=== PATIENT | female | born 1995 | race Caucasian/White ===

== ENCOUNTER 2016-09-03 08:42 | Inpatient (IN) | payer OTHER ==
[2016-09-03] MEDS ORDERED: LACTATED RINGERS SOLUTION 500 ML IV SCH ×2 (09:20→10:19)
[2016-09-03] MEDS ORDERED: BETAMET ACET/BETAMET NA PH 30 MG/5 ML VIAL IM ONE (09:20)
[2016-09-03] MEDS ORDERED: LACTATED RINGERS SOLUTION 1,000 ML IV SCH (12:20)
[2016-09-03 13:08] VITALS: BMI 31.7
[2016-09-03 13:16] LABS: BASOPHIL 0.6 % (0-2.0); EOSINOPHIL 0.4 % (0-4.5); MCH 24.9 pg (25.7-33.7); MCHC 32.3 g/dl (32.0-36.0); MEAN CELL VOLUME 77.1 fl (80-96); MEAN PLT VOLUME 8.2 fl (7.5-11.1); NEUTROPHILS 82.3 % (42.8-82.8); PLATELET COUNT 248 K/MM3 (134-434); RDW 15.6 % (11.6-15.6); WHITE BLOOD COUNT 7.6 K/mm3 (4.0-10.0)
--- NOTE | 2016-09-03 13:38 | HP ---
Past Medical History - Primary Care Physician PCP:: [facility] - Admission Chief Complaint: 21 with vaginal bleeding History of Present Illness: 21 @ 33 weeks presented with vaginal bleeding, on underwear, 1 pad, with small clots. No previous vaginal bleeding. Denies trauma. Denies contractions, LOF, +FM. c/b cholestasis, given rx for Ursodiol 300mg TID, has not started taking. PNC at [facility]. Blood type O positive. Was told previously she had a low lying placenta. 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: Alzheimer's, CVA, Dementia, Migraine, Multiple Sclerosis, Peripheral Neuropathy, Parkinson's, Seizure, Syncope, TIA, Vertigo, Other Cardiovascular: No: AFIB, Aneurysm, Aortic Insufficiency, Aortic Stenosis, CAD, CHF, Deep Vein Thrombosis, HTN, Hyperlipdemia, CO, Mitral Insufficiency, Mitral Stenosis, Murmur, Pulmonary Hypertension, Other Pulmonary: No: Asthma, Bronchitis, Cancer, COPD, O2 Dependent, Pneumonia, Previously Intubated, Pulmonary Embolus, Pulmonary Fibrosis, Sleep Apnea, Other Gastrointestinal: No: Ascites, Cancer, Constipation, Crohn's Disease, Diverticulitis, Diverticulosis, Esophageal Varices, Gastritis, GERD, GI Bleed, Hemorrhoids, Hiatal Hernia, Inflamatory Bowel Disease, Irritable Bowel Disease, Pancreatitis, Peptic Ulcer Disease, Ulcerative Colitis, Other Hepatobiliary: No: Cirrhosis, Cholelithiasis, Cholecystitis, Choledocholithiasis , Hepatitis A, Hepatitis B, Hepatitis C, Other Renal/: No: Renal Failure, Renal Inusuff, BPH, Cancer, Hematuria, Hemodialysis , Neurogenic Bladder, Renal Calculi, UTI, Other Reproductive: No: Ectopic , Endometriosis, Fibroids, PID, Polycystic Ovary Syndrome, Postmenopausal, Other ...: 3 ...Para: 2 ...Term: 1 ...: 1 ...Spon : 0 ...Induced : 0 ...Multiple Gestation: 0 ...LMP: 01/10/16 ... Weeks Gestation by Dates: 33.6 ...EDC by Dates: 10/16/16 ...EDC by Sono: 10/22/16 - Past Surgical History Past Surgical History: Yes: None Hx Myomectomy: No Hx Transabdominal Cerclage: No - Smoking History Smoking history: Never smoked Have you smoked in the past 12 months: No - Alcohol/Substance Use Hx Alcohol Use: No Home Medications - Allergies Allergies/Adverse Reactions: Allergies Allergy/AdvReac Type Severity Reaction Status Date / Time No Known Allergies Allergy Verified 09/03/16 09:34 - Home Medications Home Medications: Ambulatory Orders RX: Vit #108/Iron/FA [ One Tablet] 1 each PO DAILY 08/15/15 Family Disease History - Family Disease History Family History: Unremarkable Review of Systems - Review of Systems Constitutional: reports: No Symptoms Eyes: reports: No Symptoms HENT: reports: No Symptoms Neck: reports: No Symptoms Cardiovascular: reports: No Symptoms Respiratory: reports: No Symptoms Gastrointestinal: reports: No Symptoms Genitourinary: reports: Vaginal Bleeding Breasts: reports: No Symptoms Reported Musculoskeletal: reports: No Symptoms Integumentary: reports: No Symptoms Neurological: reports: No Symptoms Endocrine: reports: No Symptoms Hematology/Lymphatic: reports: No Symptoms Psychiatric: reports: No Symptoms Physical Exam - Maternity Vital Signs: Vital Signs Temperature 98.1 F 09/03/16 13:00 Pulse Rate 82 09/03/16 13:00 Respiratory Rate 18 09/03/16 13:00 Blood Pressure 99/74 09/03/16 13:00 O2 Sat by Pulse Oximetry (%) Constitutional: Yes: Well Nourished, No Distress Eyes: Yes: WNL HENT: Yes: WNL, Atraumatic, Normocephalic Neck: Yes: WNL Cardiovascular: Yes: WNL Lungs: Clear to auscultation - Abdominal Exam/OB Fundal Height: 32 Number of Fetuses: Single Presentation: Vertex Contractions: No Heart Rate (range): 130 Category: I Accelerations: Uniform Decelerations: None - Vaginal Exam/OB Vaginal Bleediing: Yes, Moderate (No current bleeding) Dilatation (cm): 0 Effacement (%): 0 Amniotic Membrane Status: Intact Presentation: Vertex/Position Station: -4 - Physical Exam Extremities: Yes: WNL Edema: No Deep Tendon Reflex Grade: Normal +2 - Labs Lab Results: CBC, BMP 09/03/16 13:00 Imaging - Results Ultrasound: Report Reviewed, Image Reviewed Assessment/Plan 21 @ 33 weeks with vaginal bleeding, no current evidence of labor or abruption. VSS. AF. status reassuring, cat 1 FHT. VSS.AF. Ultrasound today BPP 8/8, low lying placenta 2 cm from os, no evidence of previa. CL 4cm. No current vaginal bleeding. Given BMZ#1 10:15am. -Plan to observe for 24 hrs -continue to monitor -repeat labs 8 hrs -for 2nd dose steroids 09/04 @ 10:15am -regular diet -ursodiol 300mg TID
[2016-09-03 14:20] LABS: INR 0.96 (0.82-1.09); PROTHROMBIN TIME (PATIENT) 10.5 SEC (9.98-11.88)
[2016-09-03 14:23] LABS: ACTIVATED PTT 25.3 SECONDS (26.9-34.4)
[2016-09-03] MEDS: URSODIOL 300 MG CAPSULE PO SCH (22:05)
[2016-09-03 22:25] LABS: BASOPHIL 0.2 % (0-2.0); MCH 25.2 pg (25.7-33.7); MCHC 32.9 g/dl (32.0-36.0); MEAN CELL VOLUME 76.6 fl (80-96); MEAN PLT VOLUME 8.6 fl (7.5-11.1); NEUTROPHILS 83.7 % (42.8-82.8); PLATELET COUNT 274 K/MM3 (134-434); WHITE BLOOD COUNT 6.8 K/mm3 (4.0-10.0)
[2016-09-03 22:49] LABS: INR 0.98 (0.82-1.09); PROTHROMBIN TIME (PATIENT) 10.8 SEC (9.98-11.88)
[2016-09-04 08:13] VITALS: BP 134/64; PULSE 102; TEMP 97.8
[2016-09-04] MEDS: URSODIOL 300 MG CAPSULE PO SCH (09:49)
[2016-09-04] MEDS ORDERED: BETAMET ACET/BETAMET NA PH 30 MG/5 ML VIAL IM SCH (10:00)
--- NOTE | 2016-09-04 10:03 | PN ---
Progress Note (short form) - Note Progress Note: Doing well, no bleeding or contractions since admission. Denies LOF, +FM. No complaints. Given Ursodiol and BMZ x2. CBC WBC 6.8 K/mm3 (4.0-10.0) 09/03/16 22:00 RBC 3.70 M/mm3 (3.60-5.2) 09/03/16 22:00 Hgb 9.3 GM/dL (10.7-15.3) L 09/03/16 22:00 Hct 28.4 % (32.4-45.2) L 09/03/16 22:00 MCV 76.6 fl (80-96) L 09/03/16 22:00 MCHC 32.9 g/dl (32.0-36.0) 09/03/16 22:00 RDW 16.0 % (11.6-15.6) H 09/03/16 22:00 Plt Count 274 K/MM3 (134-434) 09/03/16 22:00 MPV 8.6 fl (7.5-11.1) 09/03/16 22:00 Neutrophils % 83.7 % (42.8-82.8) H 09/03/16 22:00 Lymphocytes % 11.6 % (8-40) 09/03/16 22:00 Monocytes % 4.5 % (3.8-10.2) 09/03/16 22:00 Eosinophils % 0.0 % (0-4.5) D 09/03/16 22:00 Basophils % 0.2 % (0-2.0) 09/03/16 22:00 INR, PTT INR 0.98 (0.82-1.09) 09/03/16 22:00 Fibrinogen 423.0 mg/dL (238-498) 09/03/16 22:00 Vital Signs Period Temp Pulse Resp BP Sys/Angel Pulse Ox Last 24 Hr 97.5 F-98.7 F 82-102 16-20 99-134/50-74 A/P 21 @ 33wk1d presented with first episode of vaginal bleeding. Monitored for 24 hrs with no additional bleeding, VSS. AF. Blood work stable, no evidence of abruption or PTL. status reassuring, cat 1 FHT, no contractions. s/p BMZ x2. Ultrasound 09/03 BPP 02/17, low lying placenta, ~2cm from os. Plan to d/c home with strict bleeding precautions. f/u at [facility] on Thursday. Instructed to start Ursodiol 300mg TID.
--- NOTE | 2016-09-04 10:06 | DS ---
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: Vital Signs Temperature 97.8 F 09/04/16 08:00 Pulse Rate 102 H 09/04/16 08:00 Respiratory Rate 20 09/04/16 08:00 Blood Pressure 134/64 09/04/16 08:00 O2 Sat by Pulse Oximetry (%) Constitutional: Yes: Well Nourished, No Distress Eyes: Yes: WNL HENT: Yes: WNL, Atraumatic, Normocephalic Neck: Yes: WNL Cardiovascular: Yes: WNL, Regular Rate and Rhythm Respiratory: Yes: WNL, Regular, CTA Bilaterally Gastrointestinal: Yes: WNL ...Rectal Exam: Yes: WNL Renal/: Yes: WNL, Other (no vaginal bleeding) External Genitalia: Yes: Normal Vaginal Exam: Yes: Normal Cervix: Yes: Normal Uterus: Yes: Other (Gravid) Extremities: Yes: WNL Edema: No Labs: CBC, BMP 09/03/16 22:00 Delivery, Single - [place] Feeding Plan Initial Plan: Elected not to breastfeed exclusively throughout hospitalization Remarks - Remarks Remarks: 21 @ 33wk1d presented with first episode of vaginal bleeding. Monitored for 24 hrs with no additional bleeding, VSS. AF. Blood work stable, no evidence of abruption or PTL. status reassuring, cat 1 FHT, no contractions. s/p BMZ x2. Ultrasound 09/03 BPP 8/8, low lying placenta, ~2cm from os. Plan to d/c home with strict bleeding precautions. f/u at [facility] on Thursday. Instructed to start Ursodiol 300mg TID. Discharge Summary Condition: Stable - Instructions Diet, Activity, Other Instructions: follow up in [facility] at [facility] Thursday09/09/16. return to L&D for any of the following: -regular contractions -decreased movement -vaginal bleeding -your water breaks Call L&D any time with quaestions or concerns [phone] Referrals: Megan Srinivasan MD [Staff Physician] - Disposition: HOME - Home Medications Comprehensive Discharge Medication List: Ambulatory Orders Vit #108/Iron/FA [ One Tablet] 1 each PO DAILY 08/15/15
== END 2016-09-04 10:15 | disposition home or self-care (01) | DRG 566 ==
LOC: JDEL 08:42 → JLDR 12:20
PROVIDERS: ADMIT Obstetrics & Gynecology; ATTEND Obstetrics & Gynecology
DX: O46.8X3 Other antepartum hemorrhage, third trimester (principal); Z3A.33 33 weeks gestation of pregnancy
CPT/HCPCS: 36415; 59025; 85025; 85384; 85610; 85730; 86850; 86900; 86901; 96372

== ENCOUNTER 2016-10-01 19:40 | Inpatient (IN) | payer OTHER ==
[2016-10-01] MEDS ORDERED: DINOPROSTONE 10 MG VAGINAL SUPPOSITORY VG ONE (20:30)
[2016-10-01] MEDS ORDERED: DEXTROSE 5%-LACTATED RINGERS 1,000 ML IV SCH (20:30)
[2016-10-01 20:57] VITALS: BMI 32.2
[2016-10-01 21:06] LABS: BASOPHIL 0.4 % (0-2.0); EOSINOPHIL 1.3 % (0-4.5); MCH 24.2 pg (25.7-33.7); MCHC 32.5 g/dl (32.0-36.0); MEAN CELL VOLUME 74.4 fl (80-96); MEAN PLT VOLUME 8.3 fl (7.5-11.1); NEUTROPHILS 63.1 % (42.8-82.8); PLATELET COUNT 309 K/MM3 (134-434); RDW 16.6 % (11.6-15.6); WHITE BLOOD COUNT 6.1 K/mm3 (4.0-10.0)
[2016-10-01 21:23] LABS: INR 0.93 (0.82-1.09); PROTHROMBIN TIME (PATIENT) 10.2 SEC (9.98-11.88)
[2016-10-01 21:26] LABS: ACTIVATED PTT 24.5 SECONDS (26.9-34.4)
[2016-10-01 23:03] LABS: CALCIUM 8.7 mg/dL (8.5-10.1); CREATININE 0.7 mg/dL (0.55-1.02)
[2016-10-02] MEDS: OXYTOCIN 20 UNITS in 0.9% NS 1,000 ML IV SCH ×2 (01:28→05:09)
[2016-10-02 01:52] LABS: VENOUS BLOOD GAS HCO3 17.2 meq/L (19-25); VENOUS PH 6.97 (7.32-7.42)
[2016-10-02] MEDS ORDERED: METHYLERGONOVINE MALEATE 0.2 MG/1 ML AMP IM PRN ×2 (02:06→04:15)
[2016-10-02 02:10] LABS: BASOPHIL 0.5 % (0-2.0); EOSINOPHIL 1.1 % (0-4.5); MCH 24.6 pg (25.7-33.7); MCHC 32.5 g/dl (32.0-36.0); MEAN CELL VOLUME 75.8 fl (80-96); MEAN PLT VOLUME 7.4 fl (7.5-11.1); NEUTROPHILS 61.5 % (42.8-82.8); PLATELET COUNT 262 K/MM3 (134-434); RDW 16.2 % (11.6-15.6); WHITE BLOOD COUNT 10.8 K/mm3 (4.0-10.0)
--- NOTE | 2016-10-02 02:16 | HP ---
Admitting History and Physical - Admission Chief Complaint: cholestasis. 37 weeks History of Present Illness: 21 y/o at 37 weeks for induction secondary to cholestasis. Pt has been followed by [facility] on ursodiol. Gct wnl, hiv neg, gbs pos, rubella immune, cystic fibrosis-neg. Pt to have cervidil induction. 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, CVA, Dementia, Migraine, Multiple Sclerosis, Peripheral Neuropathy, Parkinson's, Seizure, Syncope, TIA, Vertigo, Other Cardiovascular: No: AFIB, Aneurysm, Aortic Insufficiency, Aortic Stenosis, CAD, CHF, Deep Vein Thrombosis, HTN, Hyperlipdemia, [place], Mitral Insufficiency, Mitral Stenosis, Murmur, Pulmonary Hypertension, Other Pulmonary: No: Asthma, Bronchitis, Cancer, COPD, O2 Dependent, Pneumonia, Previously Intubated, Pulmonary Embolus, Pulmonary Fibrosis, Sleep Apnea, Other Gastrointestinal: No: Ascites, Cancer, Constipation, Crohn's Disease, Diverticulitis, Diverticulosis, Esophageal Varices, Gastritis, GERD, GI Bleed, Hemorrhoids, Hiatal Hernia, Inflamatory Bowel Disease, Irritable Bowel Disease, Pancreatitis, Peptic Ulcer Disease, Ulcerative Colitis, Other Hepatobiliary: No: Cirrhosis, Cholelithiasis, Cholecystitis, Choledocholithiasis , Hepatitis A, Hepatitis B, Hepatitis C, Other Renal/: No: Renal Failure, Renal Inusuff, BPH, Cancer, Hematuria, Hemodialysis , Neurogenic Bladder, Renal Calculi, UTI, Other Reproductive: No: Ectopic , Endometriosis, Fibroids, PID, Polycystic Ovary Syndrome, Postmenopausal, Other ...LMP: 03/09/14 ...: 3 ...Para: 2 Heme/Onc: No: Anemia, B12 Deficiency, Bleeding Disorder, Cancer, Current Chemotherapy, Current Radiation Therapy, Hemochromatosis, Hypercoaguable State, Myeloproliferative Synd, Sickle Cell Disease, Sickle Cell Trait, Thrombocytopenia, Other Infectious Disease: No: AIDS, C-Diff, Herpes Zoster, HIV, MRSA, STD's, Tuberculosis, VREF, Other Psych: No: Addictions, Anxiety, Bipolar, Depression, Panic, Psychosis, Schizophrenia, Other Musculoskeletal: No: Bursitis, Chronic low back pain, Hemiparesis, Hemiplegia, Osteoarthritis, Paraplegia, Other Rheumatology: No: Fibromyalgia, Gout, Lupus, Rheumatoid Arthritis, Sarcoidosis, Vasculitis, Other ENT: No: Allergic Rhinitis, Sinusitis, Other Dermatology: No: Basal Cell, Cellulitis, Eczema, Melanoma, Psoriasis, Squamous Cell, Other - Past Surgical History Past Surgical History: Yes: None. No: AAA Repair, AICD, Amputation, Appendectomy, Arthrosocopy, AV Fistula/Graft, Bariatric Surgery, Breast Biopsy, Bypass, CABG, Carotid Endarterectomy, Cataract Removal, Cholecystectomy, Colectomy, Colonoscopy, Colostomy, Craniotomy, , Cystectomy, Hernia Repair, Hysterectomy, Ileal Conduit, Ileosotomy, Joint Replacement, Kidney Transplant, Laminectomy, Liver Transplant, Mastectomy, Nephrectomy, Oopherectomy , Orchiectomy, Permanent Pacemaker, Prostatectomy, Splenectomy, Stent, Thoracotomy, TURP, Tonsillectomy, Tubal Ligation, Upper Endoscopy, Valve Replacement, Vasectomy, Vein Stripping/Ligation - Advance Directives Advance Directives: No: Living Will, Health Care Proxy, DNR, Organ Donor, Tissue Donor, MOLST - Smoking History Smoking history: Never smoked Have you smoked in the past 12 months: No - Alcohol/Substance Use Hx Alcohol Use: No History of Substance Use: denies: None, Cocaine, Heroin, Marijuana, Prescription , Tranquilizers - Social History Usual Living Arrangement: No: Alone, With Spouse, With Parent, With Significant Other, With Child, Assisted Living, Fdc, Other Home Medications - Allergies Allergies/Adverse Reactions: Allergies Allergy/AdvReac Type Severity Reaction Status Date / Time No Known Allergies Allergy Verified 09/03/16 09:34 - Home Medications Home Medications: Ambulatory Orders Vit #108/Iron/FA [ One Tablet] 1 each PO DAILY 08/15/15 Ursodiol [Actigall] 300 mg PO BID 10/02/16 Review of Systems - Review of Systems Constitutional: reports: No Symptoms Eyes: reports: No Symptoms HENT: reports: No Symptoms Neck: reports: No Symptoms Cardiovascular: reports: No Symptoms Respiratory: reports: No Symptoms Gastrointestinal: reports: No Symptoms Breasts: reports: No Symptoms Reported Musculoskeletal: reports: No Symptoms Integumentary: reports: No Symptoms Neurological: reports: No Symptoms Physical Examination Vital Signs: Vital Signs Temperature 97.6 F 10/02/16 00:00 Pulse Rate 85 10/02/16 00:00 Respiratory Rate 20 10/02/16 00:00 Blood Pressure 109/70 10/02/16 00:00 O2 Sat by Pulse Oximetry (%) Constitutional: Yes: Well Nourished Eyes: Yes: WNL HENT: Yes: WNL Cardiovascular: Yes: WNL Respiratory: Yes: WNL Gastrointestinal: Yes: WNL Labs: CBC, BMP 10/02/16 02:00 10/01/16 20:15 Assessment/Plan as above cerv placed by Dr Gerardo Cat one expect
--- NOTE | 2016-10-02 02:18 | PN ---
Progress Note (short form) - Note Progress Note: called that pt was bleeding and Dr. Boyd to eval. Called enroute of probable abruption and will start cs.
[2016-10-02] MEDS ORDERED: HYDROmorphone HCL CARPU-JECT 2 MG/1 ML DISP.SYRIN IVPUSH ONE (02:39)
[2016-10-02] MEDS ORDERED: DEXAMETHASONE SOD PHOSPHATE 4 MG/1 ML VIAL IVPUSH PRN (02:39)
[2016-10-02] MEDS ORDERED: PROMETHAZINE HCL 25 MG/1 ML VIAL IVPB PRN (02:39)
[2016-10-02] MEDS ORDERED: ONDANSETRON 4 MG/2 ML VIAL IVPUSH PRN (02:39)
[2016-10-02] MEDS ORDERED: HYDROmorphone *PCA* 10MG/50ML DISP.SYRIN PCA SCH (02:45)
--- NOTE | 2016-10-02 02:51 | PN ---
Progress Note (short form) - Note Progress Note: pt awake, explained findings, baby in well baby..continue post op care
[2016-10-02] MEDS: METHYLERGONOVINE MALEATE 0.2 MG/1 ML AMP IM PRN ×2 (03:45→05:40)
--- NOTE | 2016-10-02 03:48 | PN ---
Progress Note (short form) - Note Progress Note: called for pt with vaginal bleeding. Examined--fundus firm, dark blood. Pt has pitocin and will give methergine IM series.
[2016-10-02] MEDS: IBUPROFEN 800 MG/8 ML IJ IVPB PRN ×2 (04:00→19:17)
[2016-10-02] MEDS ORDERED: IBUPROFEN 600 MG TABLET (FP) PO PRN (04:15)
[2016-10-02] MEDS ORDERED: SIMETHICONE 80 MG TAB.CHEW (FP) PO PRN (04:15)
[2016-10-02] MEDS ORDERED: CITRIC ACID/SODIUM CITRATE 30 ML UNIT-DOSE CUP PO ONE (04:45)
[2016-10-02] MEDS ORDERED: CARBOPROST TROMETHAMINE 250 MCG/ML AMPUL IM PRN (05:43)
[2016-10-02 08:30] LABS: BASOPHIL 0.4 % (0-2.0); EOSINOPHIL 0.1 % (0-4.5); MCH 24.9 pg (25.7-33.7); MCHC 33.3 g/dl (32.0-36.0); MEAN PLT VOLUME 8.1 fl (7.5-11.1); NEUTROPHILS 73.7 % (42.8-82.8); PLATELET COUNT 193 K/MM3 (134-434); RDW 15.6 % (11.6-15.6)
--- NOTE | 2016-10-02 09:47 | PN ---
Progress Note (short form) - Note Progress Note: Anesthesia postop note 21 y/o F s/p GA for stat c/s for abruptio placentae, dilaudid story reader for post op pain management. Seen this morning at 8am, few hours postop. Sleeping comfortable, easily arousable, vss, aaox3, pain well controlled with story reader. Will d/c story reader when tolerating po. No anesthesia complications.
[2016-10-02] MEDS ORDERED: PCA PUMP KEY 1 EACH EACH ONE ×2 (17:28→17:56)
[2016-10-02] MEDS ORDERED: oxyCODONE HCL 5 MG TABLET PO PRN ×3 (18:40→18:42)
--- NOTE | 2016-10-02 18:46 | PN ---
Progress Note (short form) - Note Progress Note: [address] Wells for induction of Labor. Cervidil placed at 9:10pm as per Dr. Wells request. Problem List - Problems (1) Placental abruption affecting delivery Code(s): O45.90 - PREMATURE SEPARATION OF PLACENTA, UNSP, UNSP TRIMESTER
--- NOTE | 2016-10-02 19:09 | PN ---
Progress Note (short form) - Note Progress Note: Called by Nurse around 12:30 am to evaluate patient due to profuse bleeding. Came to see patient; there was significant amount of bleeding. A speculum was placed in the vagina and more bleeding visualized; cervidil expelled. Digital examination showed evidence of a 4cm-cervical dilation. Patient's Dr. was inform by the nurse. After observation of decrease heart rate, decision was made to take patient to OR due to suspicion of Placental abruption. Anesthesiologist and Solar Power Installer were called. In the OR general anesthesia was administered. Since there was no neurosurgical nurse practitioner available, the nurse was asked to call the Nursing supervisor special education to provide a resident for assistance.
--- NOTE | 2016-10-02 19:16 | OP ---
Operative Note - Note: Operative Date: 10/02/16 Pre-Operative Diagnosis: Placental Abruption Operation: Primary Findings: Baby girl in cephalic position ( LOT ) Lack of tone Post-Operative Diagnosis: Same as Pre-op Surgeon: Leann Noel Anesthesia: General Specimens Removed: Placenta Estimated Blood Loss (mls): 700
[2016-10-02] MEDS: SIMETHICONE 80 MG TAB.CHEW (FP) PO PRN (19:23)
[2016-10-03] MEDS ORDERED: BISACODYL 10 MG SUPP.RECT RC PRN ×2 (02:09→04:15)
[2016-10-03] MEDS: SIMETHICONE 80 MG TAB.CHEW (FP) PO PRN ×2 (03:51→21:09)
[2016-10-03] MEDS: oxyCODONE HCL 5 MG TABLET PO PRN ×2 (03:52→21:09)
[2016-10-03] MEDS: IBUPROFEN 600 MG TABLET (FP) PO PRN ×2 (03:55→21:09)
[2016-10-03] MEDS: OXYTOCIN 20 UNITS in 0.9% NS 1,000 ML IV SCH (06:06)
[2016-10-03 07:39] LABS: BASOPHIL 0.5 % (0-2.0); MCH 25.1 pg (25.7-33.7); MCHC 33.3 g/dl (32.0-36.0); MEAN CELL VOLUME 75.4 fl (80-96); NEUTROPHILS 69.5 % (42.8-82.8); PLATELET COUNT 209 K/MM3 (134-434); RDW 16.4 % (11.6-15.6); WHITE BLOOD COUNT 9.2 K/mm3 (4.0-10.0)
--- NOTE | 2016-10-03 08:36 | PN ---
Progress Note (short form) - Note Progress Note: Anesthesia postop note POD#2 s/p GA for emergency section for placental abruption, on landscape specialist for post op pain management. 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
[2016-10-03] MEDS ORDERED: DIPHTH,PERTUSS(ACELL),TET 0.5 ML DISP.SYRIN IM ONE (10:00)
[2016-10-03 10:13] LABS: RUBELLA ANTIBODY,IGM <20.0 AU/mL (0.0-19.9)
--- NOTE | 2016-10-03 10:13 | OP ---
DATE OF OPERATION: 10/02/2016 PREOPERATIVE DIAGNOSIS: Placental abruption, abnormal vaginal bleeding. POSTOPERATIVE DIAGNOSIS: Placental abruption, abnormal vaginal bleeding. PROCEDURE: Primary low transverse section. SURGEON: Leann Noel MD ANESTHESIA: General. COMPLICATIONS: Emergency . ESTIMATED BLOOD LOSS: 700 mL. DESCRIPTION OF PROCEDURE: Patient was in labor and delivery for induction of labor, then started bleeding profusely. After observation of decreased heart rate, decision was made to take the patient to the operating room due to suspicion of placental abruption. In the OR, general anesthesia was administered. Patient was intubated. A Pfannenstiel incision was made and carried down to the underlying layer of fascia. The fascia was incised in the midline and extended laterally. The inferior aspect of the fascial incision was then grasped with Rupinder clamps, elevated, and the rectus muscle dissected out bluntly. Attention was then turned to the superior aspect of the fascial incision, which in a similar fashion was then grasped with the Rupinder clamp, elevated, and the rectus muscle dissected out bluntly. The rectus muscle was then in the midline. The peritoneum was identified and entered sharply with the Metzenbaum scissors. The vesicouterine peritoneum was then grasped with a Rupinder clamp, elevated, and entered sharply with the Metzenbaum scissors. This incision was extended laterally, and a bladder flap created digitally. The bladder flap was inserted, and the lower uterine segment was then incised using a 10-blade. This incision was extended laterally, and the head delivered. The baby was noted to be without tone, and nose and mouth were suctioned. Cord clamped and cut. The was handed to the awaiting neonatology. The placenta was then removed manually. The uterus exteriorized and cleared of all clots and debris. The uterine incision was repaired using 0 Biosyn in a running locked fashion. The 2nd layer of the same suture was used as a means to provide excellent hemostasis. Then, the pelvis was then completely irrigated. The uterus was returned to the abdomen. The peritoneum was closed using 2-0 Biosyn, and the fascia was reapproximated using 0 Vicryl. Then, the skin was closed by Dr. Wells. PATHOLOGY: Placenta. Valencia JUÁREZ/[id number]
--- NOTE | 2016-10-03 14:35 | PN ---
Progress Note (short form) - Note Progress Note: s/p c/s for abruptio , had blood transfusion, no active vaginal bleeding no dizziness or headache CBC, BMP 10/03/16 06:35 10/01/16 20:15 Last Vital Signs Temp Pulse Resp BP Pulse Ox 98.1 F 88 20 125/71 98 10/03/16 08:35 10/03/16 08:35 10/03/16 08:35 10/03/16 08:35 10/02/16 22:00 abdomen soft, no distension, no cva incision dry, clean no calf tenderness impression anemia , asymptomatic , advised iron, vit repeat cbc
[2016-10-04] MEDS: SIMETHICONE 80 MG TAB.CHEW (FP) PO PRN ×2 (05:01→16:18)
[2016-10-04] MEDS: oxyCODONE HCL 5 MG TABLET PO PRN ×2 (05:01→16:16)
[2016-10-04] MEDS: IBUPROFEN 600 MG TABLET (FP) PO PRN ×2 (05:04→16:17)
--- NOTE | 2016-10-04 12:39 | PN ---
Post Progress Note - Subjective Subjective: resting in bed, comfortable, no bleeding Post Day: 2 Type of Delivery: Primary C/S Vital Signs: Vital Signs Temperature 98.3 F 10/04/16 07:30 Pulse Rate 78 10/04/16 07:30 Respiratory Rate 20 10/04/16 07:30 Blood Pressure 102/60 10/04/16 07:30 O2 Sat by Pulse Oximetry (%) 98 10/02/16 22:00 Uterus: Yes: Fundus Firm Incision: Yes: Mcdowell intact Abdomen/GI: Yes: Abdomen soft Lochia: Yes: Rubra Lochia, amount: Small Extremities: Yes: Calves non-tender Perineum: Yes: Intact Activity: Ambulating - Labs Labs: CBC WBC 9.2 K/mm3 (4.0-10.0) 10/03/16 06:35 RBC 2.80 M/mm3 (3.60-5.2) L D 10/03/16 06:35 Hgb 7.0 GM/dL (10.7-15.3) L D 10/03/16 06:35 Hct 21.1 % (32.4-45.2) L D 10/03/16 06:35 MCV 75.4 fl (80-96) L 10/03/16 06:35 MCHC 33.3 g/dl (32.0-36.0) 10/03/16 06:35 RDW 16.4 % (11.6-15.6) H 10/03/16 06:35 Plt Count 209 K/MM3 (134-434) 10/03/16 06:35 MPV 8.0 fl (7.5-11.1) 10/03/16 06:35 Neutrophils % 69.5 % (42.8-82.8) 10/03/16 06:35 Lymphocytes % 20.8 % (8-40) D 10/03/16 06:35 Monocytes % 8.2 % (3.8-10.2) 10/03/16 06:35 Eosinophils % 1.0 % (0-4.5) D 10/03/16 06:35 Basophils % 0.5 % (0-2.0) 10/03/16 06:35 Assessment/Plan oob reg diet check cbc in am iron
[2016-10-04] MEDS: FERROUS SO4 325 MG TABLET (FP) PO SCH (13:59)
[2016-10-05] MEDS: oxyCODONE HCL 5 MG TABLET PO PRN (07:21)
[2016-10-05] MEDS: IBUPROFEN 600 MG TABLET (FP) PO PRN (07:22)
[2016-10-05] MEDS: SIMETHICONE 80 MG TAB.CHEW (FP) PO PRN (07:23)
[2016-10-05 07:58] VITALS: BP 118/62; PULSE 71; TEMP 98.7
[2016-10-05 08:06] LABS: MCH 25.2 pg (25.7-33.7); MCHC 33.1 g/dl (32.0-36.0); MEAN CELL VOLUME 76.3 fl (80-96); MEAN PLT VOLUME 7.3 fl (7.5-11.1); PLATELET COUNT 269 K/MM3 (134-434); WHITE BLOOD COUNT 8.3 K/mm3 (4.0-10.0)
[2016-10-05] MEDS: FERROUS SO4 325 MG TABLET (FP) PO SCH (09:44)
[2016-10-05 10:39] LABS: METAMYELOCYTE 1 % (0-2)
--- NOTE | 2016-10-07 14:00 | PATH ---
Surgical Pathology Report Patient Name: CHRIS CRUMP [facility]. Rec. 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 Specimen(s) Received PLACENTA Clinical History Cholestasis Primary , 37 weeks Final Diagnosis PLACENTA, DELIVERY: FOCALLY DISRUPTED THIRD TRIMESTER PLACENTA WITH INTERVILLOUS FIBRIN DEPOSITION, THREE VESSEL UMBILICAL CORD AND UNREMARKABLE PLACENTAL MEMBRANES. Electronically Signed Robert Jean-Baptiste M.D. Gross Description The specimen is received fresh labeled placenta and is a 530 gram, 18.5 x 16.5 x 2.9 cm. placenta with attached membranes and umbilical cord. The attached membranes are mata green, meconium stained, thick, cloudy and insert marginally. The umbilical cord measures 16 cm. in length and averages 1.2 cm. in diameter. The cord inserts eccentrically, 1 cm. to the nearest margin. No true knots or strictures are identified. Cut surface of the umbilical cord reveals 3 vessels. The surface is lopez green, meconium stained with minimal fibrin deposition and appropriate caliber vessels. The maternal surface is red-brown with focal defects. Sectioning reveals red-brown, spongy parenchyma. No lesions are identified. [place] [place] sections are submitted in three cassettes as follows: 1- membrane rolls and umbilical cord; 2-3- full thickness sections of placenta. 10/06/201610/06/2016
== END 2016-10-05 14:35 | disposition home or self-care (01) | DRG 540 ==
LOC: JLDR 19:40 → J3W 10-02 05:28
PROVIDERS: ADMIT Obstetrics & Gynecology; ATTEND Obstetrics & Gynecology
PROC: 10D00Z1 Extraction of Products of Conception, Low, Open Approach (ICD-10-PCS; principal; 2016-10-02)
PROC: 3E0P7GC Introduction of Other Therapeutic Substance into Female Reproductive, Via Natural or Artificial Opening (ICD-10-PCS; 2016-10-02)
PROC: 30233N1 Transfusion of Nonautologous Red Blood Cells into Peripheral Vein, Percutaneous Approach (ICD-10-PCS; 2016-10-02)
DX: O45.8X3 Other premature separation of placenta, third trimester (principal); O99.02 Anemia complicating childbirth; D64.89 Other specified anemias; Z3A.37 37 weeks gestation of pregnancy; Z22.330 Carrier of Group B streptococcus; Z37.0 Single live birth
CPT/HCPCS: 36415; 80048; 82803; 85025; 85610; 85730; 86762; 86850; 86900; 86901; 86922; 87340; 88307-TC; P9038; P9058

== ENCOUNTER 2018-03-10 05:35 | Inpatient (IN) | payer OTHER ==
[2018-03-10] MEDS ORDERED: CITRIC ACID/SODIUM CITRATE 30 ML UNIT-DOSE CUP PO ONE (06:16)
[2018-03-10] MEDS ORDERED: ELECTROLYTE-148 SOLN 500 ML IV ONE (06:16)
[2018-03-10] MEDS ORDERED: SUCCINYLCHOLINE CHLORIDE 200 MG/10 ML VIAL ONE (06:31)
[2018-03-10] MEDS ORDERED: PROPOFOL 20 ML ONE (06:31)
[2018-03-10] MEDS ORDERED: ETOMIDATE 20 MG/10 ML AMPUL IVPUSH ONE (06:32)
--- NOTE | 2018-03-10 06:34 | HP ---
Past Medical History - Primary Care Physician PCP:: Kym Kiran - Admission Chief Complaint: 23 yrs , previous c/s , c/o pain onset & bleeeding since 4.00AM , came by ambulence at 5.30 Am c/o rom & bleeding . c/o severe pain History of Present Illness: pnc at [address] [place] [address] cholestasis of suspected since 02/11/18 rx po urosodiol bid 03/02/18 labs indicate ast 183, alt 403, total bile acds 38.8 --- elevated 12/12/17 quantiferon neg ,,1 hr gtt 88, 12/01/17 hbsag neg, rpr nr, hiv nr, Ops, rubella immune,sickle neg, pap nilm , gc/c/t neg , leas neg, cf screen neg early pregn subchorinic hematoma noted. pt was followed by MFM for growth sono & bpp for cholestasis History Source: Patient, Medical Record Limitations to Obtaining History: No Limitations - Past Medical History CIVIL ATTORNEY: Yes: Syncope. No: Migraine Cardiovascular: No: HTN, Murmur Pulmonary: No: Asthma Gastrointestinal: No: Constipation Hepatobiliary: Yes: Other (cholestasis of , elevated bile acds & liver enzymes) Renal/: No: UTI ...: 4 ...Para: 3 ...LMP: 07/06/17 ... Weeks Gestation by Dates: 35.1 ...EDC by Dates: 04/12/18 Additional OB History: g1 06/01/2012 - 5'10",. g2 08/16/15 6 '4". g3 10/02/16 primary c/s 7'4" Heme/Onc: Yes: Anemia Infectious Disease: No: AIDS, STD's, Tuberculosis Psych: Yes: Other (denies h/o mental illness) - Past Surgical History Past Surgical History: Yes: None, (09/2016) Hx Myomectomy: No Hx Transabdominal Cerclage: No - Smoking History Smoking history: Never smoked Have you smoked in the past 12 months: No - Alcohol/Substance Use Hx Alcohol Use: No History of Substance Use: reports: None Home Medications - Allergies Allergies/Adverse Reactions: Allergies Allergy/AdvReac Type Severity Reaction Status Date / Time No Known Allergies Allergy Verified 03/10/18 06:15 - Home Medications Home Medications: Ambulatory Orders Vit 108/Iron/Folic AC [ One Tablet] 1 each PO DAILY 08/15/15 Ursodiol [Actigall] 300 mg PO BID 10/02/16 Physical Exam - Maternity Vital Signs: Selected Entries 03/10/18 05:35 Temperature 97.5 F L Pulse Rate 82 Blood Pressure 103/60 Weight 186 lb Constitutional: Yes: Other (pt very restless, lying in rt lateral position, feels pain turning the position) Eyes: Yes: WNL HENT: Yes: WNL, Normocephalic Neck: Yes: WNL Cardiovascular: Yes: WNL Lungs: Clear to auscultation Breast(s): Yes: Other (not examined) - Abdominal Exam/OB Fundal Height: 35 (uterus tender to touch ) Number of Fetuses: Single Presentation: Vertex (exam at 5.45 AM) Contractions: Yes Regularity: Regular (1-3 min) Intensity: Mod/Strong Monitor Mode: External Heart Rate (range): 150-160 Heart Rate Location: Midline Category: I Accelerations: Uniform Decelerations: None - Vaginal Exam/OB Vaginal Bleediing: Yes, Fresh Blood Speculum Exam: No Dilatation (cm): 1 Effacement (%): 70 Amniotic Membrane Status: Intact Presentation: Vertex/Position Station: -3 - Physical Exam Musculoskeletal: Yes: WNL Extremities: Yes: WNL. No: Calf Tenderness Edema: Yes Integumentary: Yes: WNL, Incision (old pfannensteil scar, keloid) Deep Tendon Reflex Grade: Normal +2 ...Motor Strength: WNL Psychiatric: Yes: WNL, Alert, Oriented - Labs Lab Results: Laboratory Tests 03/10/18 03/10/18 03/10/18 06:25 06:25 06:25 WBC 10.2 H Hgb 9.8 L Hct 29.2 L D Plt Count 253 Neutrophils % 74.2 D Lymphocytes % 18.0 D Monocytes % 6.7 PT with INR 10.70 INR 0.95 PTT (Actin FS) 23.5 L Sodium Potassium Chloride BUN Random Glucose Calcium AST ALT Albumin Opiates Screen Methadone Screen Barbiturate Screen Phencyclidine Screen Ur Amphetamines Screen MDMA (Ecstasy) Screen Benzodiazepines Screen Cocaine Screen U Marijuana (THC) Screen Blood Type Antibody Screen Pending 03/10/18 03/10/18 03/10/18 06:25 06:25 06:25 WBC Hgb Hct Plt Count Neutrophils % Lymphocytes % Monocytes % PT with INR INR PTT (Actin FS) Sodium 140 Potassium 4.3 Chloride 108 H BUN 14 Random Glucose 120 H Calcium 9.2 AST 134 H ALT 293 H Albumin 2.5 L Opiates Screen Negative Methadone Screen Negative Barbiturate Screen Negative Phencyclidine Screen Negative Ur Amphetamines Screen Negative MDMA (Ecstasy) Screen Negative Benzodiazepines Screen Negative Cocaine Screen Negative U Marijuana (THC) Screen Negative Blood Type O POSITIVE Antibody Screen Hemorrhage Risk Assessment - Risk Factors Medium Risk Factors: Yes: Prior , uterine surgery,or multiple laparotomies High Risk Factors: Yes: Active bleeding on admission (abruptio placenta supected ) Risk Score: 3 Risk Level: High Risk Problem List - Problems (1) with 35 completed weeks gestation Code(s): Z3A.35 - 35 WEEKS GESTATION OF (2) Abruptio placenta Code(s): O45.90 - PREMATURE SEPARATION OF PLACENTA, UNSP, UNSP TRIMESTER Qualifiers: Trimester: third trimester Qualified Code(s): O45.93 - Premature separation of placenta, unspecified, third trimester (3) Previous section Code(s): Z98.891 - HISTORY OF UTERINE SCAR FROM PREVIOUS SURGERY Assessment/Plan 23 yrs , previous c/s, 35.1 weeks gestation presented with bleeding & pain Abruptio placenta diagnosed Plan repeat c/section mayra
[2018-03-10] MEDS: ELECTROLYTE-148 SOLN 1,000 ML IV SCH (06:45)
[2018-03-10 06:51] LABS: BASO % 0.5 % (0-2.0); EOS % 0.6 % (0-4.5); HEMATOCRIT 29.2 % (32.4-45.2); HEMOGLOBIN 9.8 GM/dL (10.7-15.3); MCH 26.7 pg (25.7-33.7); MCHC 33.5 g/dl (32.0-36.0); MEAN CELL VOLUME 79.7 fl (80-96); MEAN PLT VOLUME 8.7 fl (7.5-11.1); MONO % 6.7 % (3.8-10.2); NEUT % 74.2 % (42.8-82.8); PLATELET COUNT 253 K/MM3 (134-434); RBC 3.66 M/mm3 (3.60-5.2); RDW 14.5 % (11.6-15.6); WHITE BLOOD COUNT 10.2 K/mm3 (4.0-10.0)
[2018-03-10] MEDS ORDERED: PHENYLEPHRINE HCL 10 MG/1 ML SINGLE DOSE VIAL ONE (06:57)
[2018-03-10] MEDS ORDERED: OXYTOCIN 10 UNITS/ML VIAL ONE ×2 (06:58→07:01)
[2018-03-10] MEDS ORDERED: OXYTOCIN 20 UNITS in 0.9% NS 20 UNIT/1,000 ML INFUS.BAG IV ONE (07:01)
[2018-03-10] MEDS ORDERED: DEXAMETHASONE SOD PHOSPHATE 4 MG/1 ML VIAL ONE (07:02)
[2018-03-10] MEDS ORDERED: ceFAZolin SODIUM 1 GM VIAL ONE ×3 (07:03→22:42)
[2018-03-10 07:04] VITALS: BMI 31.9
[2018-03-10 07:12] LABS: INR 0.95 (0.83-1.09); PROTHROMBIN TIME (PATIENT) 10.7 SEC (9.7-13.0)
[2018-03-10 07:15] LABS: ACTIVATED PTT 23.5 SECONDS (25.2-36.5); COCAINE, UR NEGATIVE ng/ml (CUTOFF=300); METHADONE, UR NEGATIVE ng/ml (CUTOFF=300); OPIATES, URI NEGATIVE ng/ml (CUTOFF=300); PHENCYCLIDINE,URINE NEGATIVE ng/ml (CUTOFF=25); URINE AMPHETAMINES NEGATIVE ng/ml (CUTOFF=500); URINE BARBITURATES NEGATIVE ng/ml (CUTOFF=200); URINE BENZODIAZEPINES NEGATIVE ng/ml (CUTOFF=200)
[2018-03-10 07:21] LABS: ALBUMIN 2.5 g/dl (3.4-5.0); ANION GAP 13 MMOL/L (8-16); BILIRUBIN,TOTAL 0.4 mg/dL (0.2-1.0); BLOOD UREA NITROGEN 14 mg/dL (7-18); CALCIUM 9.2 mg/dL (8.5-10.1); CHLORIDE 108 mmol/L (98-107); CO2 19 mmol/L (21-32); CREATININE 0.7 mg/dL (0.55-1.02); GLUCOSE,RANDOM 120 mg/dL (74-106); POTASSIUM 4.3 mmol/L (3.5-5.1); SGOT/AST 134 U/L (15-37); SGPT/ALT 293 U/L (12-78); SODIUM 140 mmol/L (136-145)
[2018-03-10 07:22] LABS: ALK PHOS 210 U/L (45-117)
[2018-03-10] MEDS ORDERED: DEXAMETHASONE SOD PHOSPHATE 4 MG/1 ML VIAL IVPUSH PRN (07:22)
[2018-03-10] MEDS ORDERED: PROMETHAZINE HCL 25 MG/1 ML VIAL IVPB PRN (07:22)
[2018-03-10] MEDS ORDERED: ONDANSETRON 4 MG/2 ML VIAL IVPUSH PRN ×2 (07:22)
[2018-03-10 07:33] LABS: ARTERIAL BLD GAS O2 SATURATION 5.9 % (90-98.9); ARTERIAL BLOOD GAS BASE EXCESS -9.8 meq/l (-2-2); ARTERIAL BLOOD GAS PCO2 72.3 mmHg (35-45); ARTERIAL BLOOD GAS PO2 7.3 mmHg (80-100); ARTERIAL BLOOD GAS pH 7.09 (7.35-7.45)
[2018-03-10] MEDS: OXYTOCIN 20 UNITS in 0.9% NS 20 UNIT/1,000 ML INFUS.BAG IV SCH ×2 (07:45→17:57)
[2018-03-10 07:46] LABS: VENOUS PC02 57.8 mmHg (38-52); VENOUS PH 7.19 (7.32-7.42); VENOUS PO2 17.1 mmHg (28-48)
[2018-03-10] MEDS: HYDROmorphone *PCA* 10MG/50ML DISP.SYRIN PCA SCH (08:00)
[2018-03-10] MEDS ORDERED: HYDROmorphone *PCA* 10MG/50ML DISP.SYRIN PCA ONE (08:01)
[2018-03-10] MEDS ORDERED: IBUPROFEN 600 MG TABLET (FP) PO PRN (08:14)
[2018-03-10] MEDS ORDERED: METHYLERGONOVINE MALEATE 0.2 MG/1 ML AMP IM PRN (08:14)
--- NOTE | 2018-03-10 08:29 | PN ---
Delivery - Delivery Section: Repeat, Low Flap Transverse Type of Anesthesia: General EBL (cc): 1,200 (hitchcock output 375ml ) Delivery, Single - Stages of Labor Date 1st Stage Initiatied: 03/10/18 Time 1st Stage Initiated: 04:00 Time of Delivery: 06:56 Date Placenta Delivered: 03/10/18 Time Placenta Delivered: 06:57 Placenta: Yes: Manual Removal, Uterine Exploration (abruptio placenta, 1000 ml blood clots in utero) - Condition of Energy Advisor/Automotive Specialty Technician Present: Yes Name: Rosemarie Venegas Infant Gender: Female Weight: 6 lb 8 oz Position: Right, OT - 1 Minute Total Score: 4 5 Minutes Total Score: 7 - Feeding Plan Initial Plan: Elected not to breastfeed exclusively throughout hospitalization Remarks - Remarks Remarks: 23 yrs , previous c/s 35.1 weeks c/o bleeding & pain , gbs unknown , elevated liver enz & elevated bile acids Indication : 35.1 weeks previous /csetion , Abruptio placenta cholestasis of intrapartum course uneventful
--- NOTE | 2018-03-10 08:35 | OP ---
Operative Note - Note: Operative Date: 03/10/18 Pre-Operative Diagnosis: 35.1 weeks, , abruptio placenta, previous c/section , cholestasis of pregnacy Operation: Repeat LFTC/Section Findings: Baby Girl, 4/7 , wt 6'8" , ht 19" ROT position baby transferred to NICU .6.56 AM abruptio placenta, Afluid blood stained, baby born along with blood clots . approx 1000 ml blood clots in utero both tubes & ovaries normal Dr Venegas Through Freight Engineer present in the room Surgeon: Kym Kiran Roustabout Hand: [place] [place] Anesthesiologist/EYEGLASS FRAME TRUER: fEra Clement Anesthesia: General Specimens Removed: placenta, blood clots. cord blood for gas. cord blood Estimated Blood Loss (mls): 1,200 Drains, Volume Out (mls): 375 (hitchcock output van color ) Fluid Volume Replaced (mls): 3,000 (preop & intraop ) Operative Report Dictated: Yes
[2018-03-10 08:45] LABS: BASO % 0.2 % (0-2.0); EOS % 0.1 % (0-4.5); HEMATOCRIT 27.8 % (32.4-45.2); HEMOGLOBIN 9.2 GM/dL (10.7-15.3); LYMPH % 11.3 % (8-40); MCH 26.7 pg (25.7-33.7); MCHC 33.2 g/dl (32.0-36.0); MEAN CELL VOLUME 80.4 fl (80-96); MEAN PLT VOLUME 8.5 fl (7.5-11.1); MONO % 4.9 % (3.8-10.2); NEUT % 83.5 % (42.8-82.8); PLATELET COUNT 211 K/MM3 (134-434); RBC 3.45 M/mm3 (3.60-5.2); RDW 14.4 % (11.6-15.6); WHITE BLOOD COUNT 8.8 K/mm3 (4.0-10.0)
--- NOTE | 2018-03-10 09:10 | OP ---
DATE OF OPERATION: 03/10/2018 PREOPERATIVE DIAGNOSES: 35.1 weeks, abruption of placenta, previous section and cholestasis . OPERATION: Repeat low flap transverse section. SURGEON: Kym Kiran MD GREEN MARKETING ANALYST SURGEON: SULEIMAN River ANESTHESIOLOGIST: Efra Clement MD ANESTHESIA: General. WASTE DISPOSAL LEAKAGE TESTER: Rosemarie Venegas DO FINDINGS: This is a 23-year-old 4, para 3-0-0-3 with a previous c- section, has onset of pain and bleeding since 4 a.m. Arrived by ambulance. Patient very restless and experiences pain in turning the position and the patient's cervix 1 cm dilated, bleeding from the vagina, membranes intact and jennifer every 1 to 3 minutes. Uterus very tender. heart rate was 150, category I. Abruption of placenta suspected. Abdomen was shaved, prepped. Mccarty catheter was placed. SCD placed She was taken to the operating room table. Abdomen was painted and draped in usual manner. General anesthesia was given. Pfannenstiel incision was made through previous scar. The skin, subcutaneous tissue, anterior rectus sheath were incised transversely. Bleeding points were clamped and cauterized. Rectus muscle was from the rectus sheath. Parietal peritoneum was opened vertically. bladder peritoneum was identified. Bladder was pushed down. Lower uterine segment was incised transversely. Amniotic fluid was blood stained and the baby was delivered from ROT position at 6:56 a.m. and the blood clots also delivered along with the baby. Placenta was abrupted. Placenta was removed completely with the membranes and estimated blood clots were 1000 mL and the uterine cavity was clean. Thus the uterine incision was closed in 2 layers, 1st layer with a continuous locking with a Biosyn 0 suture, 2nd layer was a continuous intermittently locking with a Biosyn 0 suture and vertical mattress sutures were taken for the 2nd layer. Parietal peritoneum was included in the 2nd layer. Both the tubes and ovaries were normal. Sponge, instrument count was correct. Irrigation was done. Then the closure of the abdomen was done. Parietal peritoneum was closed with a Vicryl 0 suture. Muscles were approximated together with Vicryl 0 interrupted sutures and the anterior rectus sheath was closed with a Vicryl 0 suture. Continuous sutures were taken. Hemostasis was checked underneath the anterior rectus sheath flap before closure of the subcutaneous tissue. Hemostasis was verified and the previous keloid scar was excised and subcutaneous tissue hemostasis achieved and subcutaneous tissue was approximated with a Biosyn 0 suture in interrupted sutures. Then skin was approximated with the nathalia. Pressure dressing was given. Blood clots were removed from the vagina,approx 100 mL total. Blood loss was 1200 mL and urine output total preoperative and intraoperative was 375 mL. Total fluid given preoperative and intraoperative was 3000 mL and the baby was a baby girl, was 4, 7, weight was 6 pounds 8 ounces, height is 19 and baby was transferred to the NICU and the baby is on CPAP. Patient received IV Ancef 1 gm prior to the incision and she was transferred to the recovery room in stable condition. Valencia [id number] MTDD
[2018-03-10] MEDS ORDERED: CEFAZOLIN 1 GM in DEXTROSE 5%-WATER - 50 ML IVPB SCH (10:00)
[2018-03-10] MEDS ORDERED: DEXTROSE 5%-WATER - 50 ML IVPB ONE ×2 (14:28→22:42)
[2018-03-10] MEDS: CEFAZOLIN 1 GM in DEXTROSE 5%-WATER - 50 ML IVPB SCH ×2 (14:42→22:50)
[2018-03-10] MEDS ORDERED: oxyCODONE HCL 5 MG TABLET PO PRN (22:00)
[2018-03-11] MEDS ORDERED: PCA PUMP KEY 1 EACH EACH ONE ×3 (01:07→09:39)
[2018-03-11] MEDS: HYDROmorphone *PCA* 10MG/50ML DISP.SYRIN PCA SCH (03:20)
[2018-03-11] MEDS ORDERED: ceFAZolin SODIUM 1 GM VIAL ONE (06:20)
[2018-03-11] MEDS ORDERED: DEXTROSE 5%-WATER - 50 ML IVPB ONE (06:20)
[2018-03-11] MEDS: CEFAZOLIN 1 GM in DEXTROSE 5%-WATER - 50 ML IVPB SCH (06:25)
[2018-03-11] MEDS: ELECTROLYTE-148 SOLN 1,000 ML IV SCH (06:30)
[2018-03-11] MEDS ORDERED: BISACODYL 10 MG SUPP.RECT RC PRN (08:14)
[2018-03-11 08:29] LABS: BASO % 0.4 % (0-2.0); EOS % 1.2 % (0-4.5); HEMATOCRIT 23.8 % (32.4-45.2); HEMOGLOBIN 7.8 GM/dL (10.7-15.3); LYMPH % 18.4 % (8-40); MCH 26.6 pg (25.7-33.7); MCHC 32.8 g/dl (32.0-36.0); MEAN CELL VOLUME 80.9 fl (80-96); MONO % 6.8 % (3.8-10.2); NEUT % 73.2 % (42.8-82.8); PLATELET COUNT 186 K/MM3 (134-434); RBC 2.94 M/mm3 (3.60-5.2); RDW 14.7 % (11.6-15.6); WHITE BLOOD COUNT 8.7 K/mm3 (4.0-10.0)
[2018-03-11 08:53] LABS: CHLORIDE 106 mmol/L (98-107); POTASSIUM 3.8 mmol/L (3.5-5.1); SODIUM 136 mmol/L (136-145)
[2018-03-11 09:20] LABS: ALK PHOS 165 U/L (45-117); ANION GAP 8 MMOL/L (8-16); BILIRUBIN,TOTAL 0.3 mg/dL (0.2-1.0); BLOOD UREA NITROGEN 6 mg/dL (7-18); CALCIUM 7.7 mg/dL (8.5-10.1); CO2 22 mmol/L (21-32); CREATININE 0.5 mg/dL (0.55-1.02); GLUCOSE,RANDOM 74 mg/dL (74-106); SGOT/AST 111 U/L (15-37); SGPT/ALT 206 U/L (12-78); TOT PROT 4.9 g/dl (6.4-8.2)
[2018-03-11] MEDS: PRENATAL VITAMINS W/ FOLIC ACID TABLET (FP) PO SCH (10:00)
[2018-03-11] MEDS ORDERED: DIPHTH,PERTUSS(ACELL),TET 0.5 ML DISP.SYRIN IM ONE (10:00)
--- NOTE | 2018-03-11 11:14 | PN ---
Progress Note, Physician Chief Complaint: s/p c section emergent under general anesthesia History of Present Illness: post op day one - Current Medication List Current Medications: Active Medications Acetaminophen (Tylenol -) 650 mg PO Q4H PRN PRN Reason: PAIN LEVEL 1-5 Bisacodyl (Dulcolax Suppository -) 10 mg RC PRN PRN PRN Reason: CONSTIPATION Dexamethasone Sodium Phosphate (Decadron Injection -) 4 mg IVPUSH ONCE PRN PRN Reason: NAUSEA AND/OR VOMITING Diphenhydramine HCl (Benadryl Injection -) 12.5 mg IVPUSH ONCE PRN PRN Reason: FOR ITCHING Last Admin: 03/10/18 14:12 Dose: 12.5 mg Ferrous Sulfate (Feosol -) 325 mg PO BID [facility] Parenteral Electrolytes (Plasma-Lyte 148 -) 1,000 mls @ 125 mls/hr IV ASDIR [facility] Last Admin: 03/11/18 06:30 Dose: Not Given Oxytocin/Sodium Chloride (Normal Saline+20 Units Oxytocin -) 20 unit in 1,000 mls @ 125 mls/hr IV ASDIR [facility] Last Admin: 03/10/18 17:57 Dose: 125 mls/hr Cefazolin Sodium 1 gm/ (Dextrose) 50 mls @ 100 mls/hr IVPB Q8H [facility] Last Admin: 03/11/18 06:25 Dose: 100 mls/hr Ibuprofen (Motrin -) 600 mg PO Q4H PRN PRN Reason: PAIN LEVEL 1 - 3 Methylergonovine Maleate (Methergine Injection -) 0.2 mg IM Q4H PRN PRN Reason: Excessive Bleeding (L&D) Last Admin: 03/11/18 04:24 Dose: 0.2 mg Ondansetron HCl (Zofran Injection) 4 mg IVPUSH Q6H PRN PRN Reason: NAUSEA AND/OR VOMITING Ondansetron HCl (Zofran Injection) 4 mg IVPUSH Q4H PRN PRN Reason: NAUSEA AND/OR VOMITING Oxycodone HCl (Roxicodone -) 5 mg PO Q4H PRN PRN Reason: PAIN LEVEL 4 - 6 Oxycodone HCl (Roxicodone -) 10 mg PO Q4H PRN PRN Reason: PAIN LEVEL 7 - 10 Multivit/Folic Acid/Iron ( Vitamins (Sjr) -) 1 tab PO DAILY RJ Promethazine HCl (Phenergan Injection -) 12.5 mg IVPB Q6H PRN PRN Reason: NAUSEA AND/OR VOMITING Senna/Docusate Sodium (Pericolace -) 2 tablet PO HS PRN PRN Reason: CONSTIPATION Simethicone (Mylicon -) 80 mg PO Q4H PRN PRN Reason: GAS - Objective Vital Signs: Vital Signs Temperature 99.0 F 03/11/18 07:25 Pulse Rate 89 03/11/18 07:25 Respiratory Rate 18 03/11/18 07:25 Blood Pressure 97/61 03/11/18 07:25 O2 Sat by Pulse Oximetry (%) 100 03/10/18 08:35 Constitutional: Yes: Well Nourished Cardiovascular: Yes: WNL Respiratory: Yes: WNL Gastrointestinal: Yes: WNL Labs: CBC, BMP 03/11/18 07:45 03/11/18 07:45 INR, PTT INR 0.95 (0.83-1.09) 03/10/18 06:25 Fibrinogen 214.0 mg/dL (238-498) L 03/10/18 07:16 Assessment/Plan no adverse effect of anesthetic, kinesiotherapist discontinued, no further intervention from the dept of anesthesia.
[2018-03-11] MEDS ORDERED: SODIUM CHLORIDE 0.9% 500 ML INFUS.BAG IV ONE (11:59)
--- NOTE | 2018-03-11 12:08 | PN ---
Post Progress Note - Subjective Subjective: c/o dizziness when oob c/o pain in rt flank passed urine after hitchcock was discontinued Post Day: 1 Type of Delivery: Repeat C/S Vital Signs: Vital Signs Temperature 99.0 F 03/11/18 07:25 Pulse Rate 89 03/11/18 07:25 Respiratory Rate 18 03/11/18 07:25 Blood Pressure 97/61 03/11/18 07:25 O2 Sat by Pulse Oximetry (%) 100 03/10/18 08:35 Breast Exam: Yes: Soft, Other (hayden BF ). No: Engorged Uterus: Yes: Fundus Firm, Fundus below umbilicus, Non-tender Incision: Yes: Dressing dry and intact. No: Redness, Oozing Abdomen/GI: Yes: Abdomen soft (bs active ), Tender (rt side in flank area ), Passing flatus, Tolerating PO (liquids, will eat reg diet for lunch). No: Abdominal Distention Lochia: Yes: Rubra Lochia, amount: Small Extremities: Yes: Calves non-tender Perineum: Yes: Intact Activity: Ambulating (with assistance because dizzy ) - Labs Labs: CBC WBC 8.7 K/mm3 (4.0-10.0) 03/11/18 07:45 RBC 2.94 M/mm3 (3.60-5.2) L 03/11/18 07:45 Hgb 7.8 GM/dL (10.7-15.3) L 03/11/18 07:45 Hct 23.8 % (32.4-45.2) L 03/11/18 07:45 MCV 80.9 fl (80-96) 03/11/18 07:45 MCH 26.6 pg (25.7-33.7) 03/11/18 07:45 MCHC 32.8 g/dl (32.0-36.0) 03/11/18 07:45 RDW 14.7 % (11.6-15.6) 03/11/18 07:45 Plt Count 186 K/MM3 (134-434) 03/11/18 07:45 MPV 8.0 fl (7.5-11.1) 03/11/18 07:45 Absolute Neuts (auto) 6.4 K/mm3 (1.5-8.0) 03/11/18 07:45 Neutrophils % 73.2 % (42.8-82.8) 03/11/18 07:45 Lymphocytes % 18.4 % (8-40) D 03/11/18 07:45 Monocytes % 6.8 % (3.8-10.2) 03/11/18 07:45 Eosinophils % 1.2 % (0-4.5) D 03/11/18 07:45 Basophils % 0.4 % (0-2.0) 03/11/18 07:45 Nucleated RBC % 0 % (0-0) 03/11/18 07:45 Laboratory Tests 03/11/18 07:45 Sodium 136 Potassium 3.8 Chloride 106 Carbon Dioxide 22 BUN 6 L Creatinine 0.5 L Random Glucose 74 Total Bilirubin 0.3 AST 111 H ALT 206 H Other Findings, Remarks: RS Cta output 1600 ml Problem List - Problems (1) with 35 completed weeks gestation Code(s): Z3A.35 - 35 WEEKS GESTATION OF (2) Abruptio placenta Code(s): O45.90 - PREMATURE SEPARATION OF PLACENTA, UNSP, UNSP TRIMESTER Qualifiers: Trimester: third trimester Qualified Code(s): O45.93 - Premature separation of placenta, unspecified, third trimester (3) Previous section Code(s): Z98.891 - HISTORY OF UTERINE SCAR FROM PREVIOUS SURGERY (4) delivery delivered Code(s): O82 - ENCOUNTER FOR DELIVERY WITHOUT INDICATION (5) Anemia due to acute blood loss Code(s): D62 - ACUTE POSTHEMORRHAGIC ANEMIA (6) Encounter for visit Code(s): Z39.2 - ENCOUNTER FOR ROUTINE FOLLOW-UP Assessment/Plan post abruptio placenta, ac blood loss 1200 ml , pt symptomatic, anemia Plan : discuss pack cell transfusion, risk, benfits, alt explained, pt consents for 2 units of pack cells encourage deep breathing , ambulation, po fluids
[2018-03-11] MEDS ORDERED: SODIUM CHLORIDE 1,000 ML IV SCH (12:15)
[2018-03-11] MEDS: oxyCODONE HCL 5 MG TABLET PO PRN (13:01)
[2018-03-11] MEDS: ACETAMINOPHEN 325 MG TABLET (FP) PO PRN ×2 (13:02→20:27)
[2018-03-11] MEDS: SIMETHICONE 80 MG TAB.CHEW (FP) PO PRN ×2 (13:04→20:27)
[2018-03-11] MEDS: SENNOSIDES/DOCUSATE COMBO (SENNA PLUS) TABLET (UD) PO PRN (20:26)
[2018-03-11] MEDS: FERROUS SO4 325 MG TABLET (FP) PO SCH (22:00)
[2018-03-12 07:25] LABS: BASO % 0.4 % (0-2.0); EOS % 0.9 % (0-4.5); HEMOGLOBIN 9.7 GM/dL (10.7-15.3); LYMPH % 22.4 % (8-40); MCH 27.2 pg (25.7-33.7); MCHC 33.4 g/dl (32.0-36.0); MEAN CELL VOLUME 81.6 fl (80-96); MEAN PLT VOLUME 8.1 fl (7.5-11.1); MONO % 8.4 % (3.8-10.2); NEUT % 67.9 % (42.8-82.8); PLATELET COUNT 222 K/MM3 (134-434); RBC 3.55 M/mm3 (3.60-5.2); RDW 14.4 % (11.6-15.6); WHITE BLOOD COUNT 8.5 K/mm3 (4.0-10.0)
--- NOTE | 2018-03-12 08:16 | PN ---
Progress Note (short form) - Note Progress Note: pod 2 .s/p c/s , doing well,, passing gas Last Vital Signs Temp Pulse Resp BP Pulse Ox 99.0 F 90 20 98/58 100 03/12/18 05:54 03/12/18 05:54 03/12/18 05:54 03/12/18 05:54 03/10/18 08:35 abdomen soft . no distension, no cva incision dry, clean no calf tenderness plan ambulate, advance diet cbc in am
[2018-03-12] MEDS: FERROUS SO4 325 MG TABLET (FP) PO SCH ×2 (09:22→22:19)
[2018-03-12] MEDS: ACETAMINOPHEN 325 MG TABLET (FP) PO PRN ×2 (10:01→20:12)
[2018-03-12] MEDS: oxyCODONE HCL 5 MG TABLET PO PRN (10:01)
[2018-03-12] MEDS: PRENATAL VITAMINS W/ FOLIC ACID TABLET (FP) PO SCH (10:02)
[2018-03-12] MEDS: SIMETHICONE 80 MG TAB.CHEW (FP) PO PRN ×2 (10:02→20:12)
[2018-03-12] MEDS: SENNOSIDES/DOCUSATE COMBO (SENNA PLUS) TABLET (UD) PO PRN (20:13)
[2018-03-13 08:20] LABS: BASO % 0.7 % (0-2.0); EOS % 2.9 % (0-4.5); HEMATOCRIT 26.7 % (32.4-45.2); HEMOGLOBIN 8.9 GM/dL (10.7-15.3); LYMPH % 29.4 % (8-40); MCH 27.2 pg (25.7-33.7); MCHC 33.5 g/dl (32.0-36.0); MEAN CELL VOLUME 81.5 fl (80-96); MEAN PLT VOLUME 7.5 fl (7.5-11.1); MONO % 8.7 % (3.8-10.2); NEUT % 58.3 % (42.8-82.8); PLATELET COUNT 225 K/MM3 (134-434); RBC 3.28 M/mm3 (3.60-5.2); RDW 14.7 % (11.6-15.6); WHITE BLOOD COUNT 6.6 K/mm3 (4.0-10.0)
--- NOTE | 2018-03-13 08:57 | PN ---
Post Progress Note - Subjective Subjective: no c/o pain c/o tiredness voiding without difficulty bm done Post Day: 3 Type of Delivery: Repeat C/S Vital Signs: Vital Signs Temperature 98.8 F 03/13/18 01:34 Pulse Rate 65 03/12/18 20:16 Respiratory Rate 20 03/12/18 20:16 Blood Pressure 94/51 03/12/18 20:16 O2 Sat by Pulse Oximetry (%) 100 03/10/18 08:35 Breast Exam: Yes: Soft. No: Engorged Uterus: Yes: Fundus Firm, Fundus below umbilicus, Non-tender Incision: Yes: [place] intact. No: Redness, Oozing Abdomen/GI: Yes: Abdomen soft, Passing flatus, Tolerating PO (diet). No: Abdominal Distention, Tender Lochia: Yes: Rubra Lochia, amount: Moderate Extremities: Yes: Calves non-tender Perineum: Yes: Intact Activity: Ambulating - Labs Labs: CBC WBC 6.6 K/mm3 (4.0-10.0) 03/13/18 07:45 RBC 3.28 M/mm3 (3.60-5.2) L 03/13/18 07:45 Hgb 8.9 GM/dL (10.7-15.3) L 03/13/18 07:45 Hct 26.7 % (32.4-45.2) L 03/13/18 07:45 MCV 81.5 fl (80-96) 03/13/18 07:45 MCH 27.2 pg (25.7-33.7) 03/13/18 07:45 MCHC 33.5 g/dl (32.0-36.0) 03/13/18 07:45 RDW 14.7 % (11.6-15.6) 03/13/18 07:45 Plt Count 225 K/MM3 (134-434) 03/13/18 07:45 MPV 7.5 fl (7.5-11.1) 03/13/18 07:45 Absolute Neuts (auto) 3.9 K/mm3 (1.5-8.0) 03/13/18 07:45 Neutrophils % 58.3 % (42.8-82.8) 03/13/18 07:45 Lymphocytes % 29.4 % (8-40) D 03/13/18 07:45 Monocytes % 8.7 % (3.8-10.2) 03/13/18 07:45 Eosinophils % 2.9 % (0-4.5) D 03/13/18 07:45 Basophils % 0.7 % (0-2.0) 03/13/18 07:45 Nucleated RBC % 0 % (0-0) 03/13/18 07:45 Problem List - Problems (1) with 35 completed weeks gestation Code(s): Z3A.35 - 35 WEEKS GESTATION OF (2) Abruptio placenta Code(s): O45.90 - PREMATURE SEPARATION OF PLACENTA, UNSP, UNSP TRIMESTER Qualifiers: Trimester: third trimester Qualified Code(s): O45.93 - Premature separation of placenta, unspecified, third trimester (3) Previous section Code(s): Z98.891 - HISTORY OF UTERINE SCAR FROM PREVIOUS SURGERY (4) delivery delivered Code(s): O82 - ENCOUNTER FOR DELIVERY WITHOUT INDICATION (5) Anemia due to acute blood loss Code(s): D62 - ACUTE POSTHEMORRHAGIC ANEMIA (6) Encounter for visit Code(s): Z39.2 - ENCOUNTER FOR ROUTINE FOLLOW-UP Assessment/Plan anemia counselled ct po care discharge tomorrow.
[2018-03-13] MEDS: FERROUS SO4 325 MG TABLET (FP) PO SCH ×2 (09:13→21:26)
[2018-03-13] MEDS: PRENATAL VITAMINS W/ FOLIC ACID TABLET (FP) PO SCH (09:13)
[2018-03-13] MEDS ORDERED: DIPHTH,PERTUSS(ACELL),TET 0.5 ML DISP.SYRIN IM ONE (12:00)
[2018-03-14 08:21] VITALS: BP 121/72; PULSE 63; TEMP 98.6
--- NOTE | 2018-03-14 08:50 | DS ---
Physical Exam-GENERAL HARDWARE SALESPERSON Vital Signs: Vital Signs Temperature 98.6 F 03/14/18 08:19 Pulse Rate 63 03/14/18 08:19 Respiratory Rate 20 03/14/18 08:19 Blood Pressure 121/72 03/14/18 08:19 O2 Sat by Pulse Oximetry (%) 100 03/10/18 08:35 Constitutional: Yes: Well Nourished, Pallor, Other (painscale /10) Eyes: Yes: WNL HENT: Yes: WNL Neck: Yes: WNL Cardiovascular: Yes: WNL Respiratory: Yes: WNL Gastrointestinal: Yes: WNL, Normal Bowel Sounds, Soft, Other (bm done). No: Distention Renal/: Yes: Other (voiding without difficulty). No: CVA Tenderness - Left, CVA Tenderness - Right External Genitalia: Yes: Normal. No: Odor ....Post : Yes: Uterus firm, Uterus non-tender, Slight lochia rubra Breast(s): Yes: WNL Musculoskeletal: Yes: WNL Extremities: Yes: WNL. No: Calf Tenderness Edema: Yes Edema: LLE: 1+, RLE: 1+ Wound/Incision: Yes: Clean/Dry, Well Approximated, Steri Strips, Open to air, Marshall Removed. No: Draining, Reddened, Bleeding, Excoriated Neurological: Yes: WNL, Alert, Oriented ...Motor Strength: WNL Psychiatric: Yes: WNL, Alert, Oriented Labs: CBC, BMP 03/13/18 07:45 03/11/18 07:45 Delivery - Delivery Section: Repeat, Low Flap Transverse Type of Anesthesia: General Episiotomy/Laceration: None EBL (cc): 1,200 (hitchcock output 375ml ) Delivery, Single - Stages of Labor Date 1st Stage Initiatied: 03/10/18 Time 1st Stage Initiated: 04:00 Date of Delivery: 03/10/18 Time of Delivery: 06:56 Time Placenta Delivered: 06:57 Placenta: Yes: Manual Removal, Uterine Exploration (abruptio placenta, 1000 ml blood clots in utero) - Condition of Infant Building Serviceman/Transportation Refrigeration Technician Present: Yes Name: Rosemarie Venegas Infant Gender: Female Weight: 6 lb 8 oz Position: Right, OT Total Hours ROM (Hrs/Mins): 2 MIN - 1 Minute Total Score: 4 5 Minutes Total Score: 7 - [place] Feeding Plan Initial Plan: Elected not to breastfeed exclusively throughout hospitalization Remarks - Remarks Remarks: 23 yrs , previous c/s 35.1 weeks c/o bleeding & pain , gbs unknown , elevated liver enz & elevated bile acids Indication : 35.1 weeks previous /csetion , Abruptio placenta cholestasis of intrapartum course uneventful 2 units pack cell transfusion was given on PPD #1. post op course a febrile . anemia counselled infant in NICU discharge today Discharge Summary Reason For Visit: LABOR ADMIT Current Active Problems Abruptio placenta (Acute) Anemia due to acute blood loss (Acute) delivery delivered (Acute) Encounter for visit (Acute) with 35 completed weeks gestation (Acute) Previous section (Acute) Condition: Stable - Instructions Diet, Activity, Other Instructions: Post Instructions DIET: Continue good diet high in protein, calcium, and iron rich foods. Drink at least eight (8) glasses of water daily in addition to other fluids. ___ Regular diet MEDICATIONS: Continue vitamins and iron as previously directed. Motrin and Tylenol may be taken for minor discomfort. ACTIVITY: Mild to moderate exercise may be started in two (2) weeks. Take frequent rest periods. Resume normal activity after six (6) week check up. WOUND CARE OF OPERATIVE SITE: Continue use of perineal bottle until vaginal discharge stops. Keep area clean. Shower daily. Keep abdominal wound dry. Report any drainage or redness to physician. Tub baths, tampons and douches are not permitted for [address] Breast feeding & or Bottle feeding BREAST CARE: (For those that are not breast feeding): If engorgement occurs: Wear tight fitting bra. Take Tylenol or Motrin for pain. Apply cold packs (ice in bags to each breast ) FAMILY PLANNING: There are many control alternatives to pursue and they should be discussed at your first office visit. You may resume sexual activity after your six (6) week check up. (Remember, breast feeding is not a contraceptive) NEXT PHYSICIAN APPOINTMENT: Be certain to call for a one (1) week appointment, unless otherwise directed. Call Clinic or got to Emergency Dept if you have any of the following: Heavy vaginal bleeding Painful urination Leg pain Unusual odor noted to vaginal bleeding High fever Red streaking noted on breast return to clinic in 1 week for incision check. call [facility] for appointment. [phone] Referrals: Kym Kiran MD [Staff Physician] - Disposition: HOME - Home Medications Comprehensive Discharge Medication List: Ambulatory Orders Vit 108/Iron/Folic AC [ One Tablet] 1 each PO DAILY 08/15/15 Acetaminophen [Tylenol .Regular Strength -] 500 mg PO Q4H PRN #30 tablet Ferrous Sulfate [Feosol] 325 mg PO BID #60 tab 03/13/18 Ibuprofen [Motrin -] 600 mg PO Q4H PRN #30 tablet 03/13/18 Vitamins (Sjr) - 1 tab PO DAILY #30 tablet 03/13/18 Sennosides/Docusate Sodium [Pericolace -] 2 tablet PO HS PRN #30 tablet
[2018-03-14] MEDS: FERROUS SO4 325 MG TABLET (FP) PO SCH (09:25)
[2018-03-14] MEDS: PRENATAL VITAMINS W/ FOLIC ACID TABLET (FP) PO SCH (09:25)
--- NOTE | 2018-03-16 16:24 | PATH ---
Surgical Pathology Report Patient Name: CHRIS CRUMP [facility]. Rec. 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 Specimen(s) Received PLACENTA Clinical History , 35.1 weeks, cholestasis, placental abruption x2 05/2012, 08/2015 09/2016 Final Diagnosis PLACENTA: FOCALLY DISRUPTED THIRD TRIMESTER PLACENTA SHOWING FOCAL ACUTE CHORIOAMNIONITIS. TRIVASCULAR CORD. Electronically Signed Radha Carbajal M.D. Gross Description The specimen is received fresh labeled placenta and is a 523 gram, 18.5 x 15.0 x 2.8 cm. placenta with attached membranes and umbilical cord. The attached membranes are mata green, meconium stained, cloudy and insert marginally. The umbilical cord measures 17 cm. in length and averages 1 cm. in diameter. The cord inserts eccentrically, 4 cm. to the nearest margin. No true knots or strictures are identified. Cut surface of the umbilical cord reveals 3 vessels. The surface is lopez green, meconium stained with minimal fibrin deposition and appropriate caliber vessels. The maternal surface is red-brown with focal defects. Sectioning reveals red-brown, spongy parenchyma. No lesions are identified. Dependency Director sections are submitted in three cassettes as follows: 1- membrane rolls and umbilical cord; 2-3- full thickness sections of placenta. /03/12/2018 [facility]03/12/2018
== END 2018-03-14 10:30 | disposition home or self-care (01) | DRG 540 ==
LOC: JLDR 05:35 → J3W 11:40
PROVIDERS: ADMIT Obstetrics & Gynecology; ATTEND Obstetrics & Gynecology
PROC: 10D00Z1 Extraction of Products of Conception, Low, Open Approach (ICD-10-PCS; principal; 2018-03-10)
PROC: 30233N1 Transfusion of Nonautologous Red Blood Cells into Peripheral Vein, Percutaneous Approach (ICD-10-PCS; 2018-03-11)
DX: O45.93 Premature separation of placenta, unspecified, third trimester (principal); K83.1 Obstruction of bile duct; O26.613 Liver and biliary tract disorders in pregnancy, third trimester; D62 Acute posthemorrhagic anemia; O99.02 Anemia complicating childbirth; O34.211 Maternal care for low transverse scar from previous cesarean delivery; Z3A.35 35 weeks gestation of pregnancy; Z37.0 Single live birth
CPT/HCPCS: 36415; 36430; 36600; 80053; 80307; 82803; 85025; 85362; 85384; 85610; 85730; 86593; 86850; 86900; 86901; 86922; 87389; 88307-TC; 90715; 94010; J7030; P9038; P9058

== ENCOUNTER 2020-10-01 22:29 | Emergency (ER) | payer OTHER ==
[2020-10-01 22:39] VITALS: BP 102/65; PULSE 113; TEMP 98.8; BMI 33.0
[2020-10-02] MEDS ORDERED: IBUPROFEN 600 MG TABLET (FP) PO ONE ×2 (00:36→00:44)
== END 2020-10-02 01:37 | disposition home or self-care (01) ==
LOC: JER 22:29
DX: U07.1 COVID-19 (principal)
CPT/HCPCS: 99283-25; C9803; U0003